=== PATIENT | female | born 2005 | race Asian ===

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

== ENCOUNTER 2023-12-13 03:15 | Emergency (ER) | payer OTHER ==
[~2023-12-13] VITALS: Ht 157.5 cm; Wt 81.6 kg
[~2023-12-13 03:15] MED LIST: ONDA-188 PO; [UNRECOGNIZED DRUG - CODE] PO
[2023-12-13 03:20] VITALS: BP 129/81; PULSE 89; RESP 16; TEMP 97.1; O2SAT 98
[2023-12-13 04:20] VITALS: BP 129/81; PULSE 89; RESP 16; TEMP 97.1; O2SAT 98
== END 2023-12-13 03:30 | disposition left against medical advice (07) ==
LOC: MED 03:15
DX: K62.89 Other specified diseases of anus and rectum (principal); Z53.21 Procedure and treatment not carried out due to patient leaving prior to being seen by health care provider
CPT/HCPCS: 99281

== ENCOUNTER 2023-12-29 21:45 | Inpatient (IN) | payer OTHER ==
[~2023-12-29] VITALS: Ht 157.5 cm; Wt 77.1 kg
[2023-12-29 21:45] VITALS: BP 113/71; PULSE 95; RESP 18; TEMP 97.7; O2SAT 98
[2023-12-29 22:32] VITALS: O2SAT 100
[2023-12-30] MEDS: PIPERACILLIN/TAZOBACTAM 3.375 GM in DEXTROSE 5% 50 ML IV ONE (00:30)
[2023-12-30 00:38] VITALS: O2SAT 99
[2023-12-30 00:57] LABS: BASOPHILS # (AUTO) 0.1 K/uL (0.00-0.22); BASOPHILS % (AUTO) 1.2 % (0.0-2.0); EOSINOPHILS # (AUTO) 0.1 K/uL (0-0.4); EOSINOPHILS % (AUTO) 1.5 % (0.0-4.0); HEMATOCRIT 34.5 % (36-48); HEMOGLOBIN 11.3 g/dL (12.0-16.0); LYMPHOCYTES # (AUTO) 2.6 K/uL (2.5-16.5); LYMPHOCYTES % (AUTO) 27.2 % (20.5-51.1); MEAN CORPUSCULAR HEMOGLOBIN 27 pg (27-31); MEAN CORPUSCULAR HGB CONC 33 g/dL (33-37); MEAN CORPUSCULAR VOLUME 82.7 fL (80-94); MONOCYTES # (AUTO) 0.5 K/uL (0.8-1.0); MONOCYTES % (AUTO) 5.5 % (1.7-9.3); NEUTROPHILS # (AUTO) 6.2 K/uL (1.8-7.7); NEUTROPHILS % (AUTO) 64.6 % (42.2-75.2); PLATELET COUNT (AUTO) 849 K/uL (140-450); RED BLOOD CELL COUNT(AUTO) 4.17 MIL/uL (4.20-5.40); RED CELL DISTRIBUTION WIDTH 14.9 % (11.6-13.7); WHITE BLOOD COUNT (AUTO) 9.6 K/uL (4.5-11.0)
[2023-12-30 01:18] LABS: ALBUMIN 2.9 g/dL (3.4-5.0); ANION GAP 10.6 (8-16); CALCIUM 8.9 mg/dL (8.5-10.1); CARBON DIOXIDE 28.7 mmol/L (21-32); CREATININE 0.7 mg/dL (0.6-1.3); POTASSIUM 4.3 mmol/L (3.5-5.1); TOTAL BILIRUBIN 0.2 mg/dL (0.0-1.0); TOTAL PROTEIN, SERUM 8.4 g/dL (6.4-8.2)
[2023-12-30 01:23] LABS: LACTIC ACID 0.8 mmol/L (0.4-2.0)
[2023-12-30] MEDS: NACL 0.9% IV ONE (01:27)
[2023-12-30] MEDS ORDERED: PIPERACILLIN/TAZOBACTAM 3.375 GM VIAL IV ONE (01:41)
[2023-12-30 02:27] VITALS: O2SAT 99
[2023-12-30] MEDS: MORPHINE SULFATE 4 MG/ML SYR IVP ONE (02:46)
[2023-12-30] MEDS: NACL 0.9% 1,500 ML IV ONE (03:04)
[2023-12-30 04:37] VITALS: O2SAT 99
[2023-12-30] MEDS: KETOROLAC 30 MG/ML VIAL IVP ONE (05:11)
[2023-12-30] MEDS ORDERED: KCL 20 MEQ IN 100 mL PREMIX 200 ML IV PRN (06:15)
[2023-12-30] MEDS ORDERED: MORPHINE SULFATE 4 MG/ML SYR IVP PRN (06:15)
[2023-12-30] MEDS ORDERED: MAG SULF 2000 MG/WATER PREMIX 50 ML IV PRN (06:15)
[2023-12-30] MEDS ORDERED: VANCOMYCIN PER PHARMACY MC PRN (06:15)
[2023-12-30] MEDS ORDERED: POTASSIUM CHLORIDE 10 MEQ TABER PO PRN (06:15)
[2023-12-30] MEDS ORDERED: HYDROcodone/APAP 5/325 MG 1 TAB TAB PO PRN (06:15)
[2023-12-30] MEDS ORDERED: MAGNESIUM OXIDE 400 MG TAB PO PRN (06:15)
[2023-12-30] MEDS ORDERED: ONDANSETRON 4 MG/2 ML VIAL IVP PRN (06:15)
[2023-12-30] MEDS: NACL 0.9% 1,000 ML IV SCH (06:30)
[2023-12-30] MEDS ORDERED: VANCOMYCIN 1GM/DEXT 5% PREMIX 200 ML IV ONE (06:45)
[2023-12-30] MEDS ORDERED: CLIN150C1 PO (06:59)
[2023-12-30 07:30] VITALS: O2SAT 97
[2023-12-30] MEDS: VANCOMYCIN 1.25GM PREMIX 250 ML IV SCH (09:53)
[2023-12-30 10:19] VITALS: O2SAT 97
[2023-12-30] MEDS: PIPERACILLIN/TAZOBACTAM 3.375 GM in DEXTROSE 5% 50 ML IV SCH (13:00)
[2023-12-30] MEDS: ACETAMINOPHEN 325 MG TAB PO PRN (16:03)
[2023-12-30 16:28] VITALS: BP 97/52; PULSE 84; RESP 18; TEMP 98
[2023-12-30] MEDS ORDERED: VANCOMYCIN 1,000 MG in DEXTROSE 5% 250 ML IV SCH (19:00)
== END 2023-12-30 17:05 | disposition home or self-care (01) | DRG 254 ==
LOC: MED 21:45 → MTU 12-30 06:20 → MMU 12-30 06:20 → MTU 12-30 06:47 → OBSVTOIN 12-30 10:05
PROVIDERS: ADMIT Hospitalist; ATTEND Hospitalist
DX: K62.89 Other specified diseases of anus and rectum (principal); E66.9 Obesity, unspecified; Z68.31 Body mass index [BMI] 31.0-31.9, adult; Z79.899 Other long term (current) drug therapy
CPT/HCPCS: 36415; 80053; 83605; 85025; 96365; 96375; 99285; J1885; J2270; J2543; J3370; J3372; J7060